=== PATIENT | female | born 2000 | race Two or more races ===

== ENCOUNTER 2024-03-04 21:25 | Emergency (ER) | payer BC ==
[~2024-03-04] VITALS: Ht 167.6 cm; Wt 70.3 kg
[2024-03-04] MEDS ORDERED: KETOROLAC TROMETHAMINE 30 MG VIAL IM ONE (22:00)
[2024-03-04] MEDS ORDERED: DEXAMETHASONE SODIUM PHOSPHATE 4 MG/ML VIAL IM ONE (22:00)
== END 2024-03-04 22:38 | disposition home or self-care (01) ==
LOC: ER 21:27
DX: R53.81 Other malaise (principal); H66.90 Otitis media, unspecified, unspecified ear; T70.29XA Other effects of high altitude, initial encounter